=== PATIENT | male | born 1975 ===

== ENCOUNTER 2017-04-11 14:33 | Emergency (ER) | payer MEDICAID ==
[2017-04-11 15:20] LABS: Basophils % (Auto) 0.6 % (0.0-1.8); Eosinophils # (Auto) 0.1 K/mm3 (0.0-0.4); Eosinophils % (Auto) 1.1 % (0.0-4.3); Hematocrit 45.2 % (35.5-45.6); Hemoglobin 15.3 gm/dl (11.8-15.2); Lymphocytes # (Auto) 1.9 K/mm3 (1.2-5.4); Lymphocytes % (Auto) 30.6 % (13.4-35.0); Mean Corpuscular HGB Conc 34 % (32-34); Mean Corpuscular Hemoglobin 28 pg (28-32); Mean Corpuscular Volume 82 fl (84-94); Monocytes # (Auto) 0.5 K/mm3 (0.0-0.8); Monocytes % (Auto) 8.1 % (0.0-7.3); Platelet Count 100 K/mm3 (140-440); Red Blood Count 5.54 M/mm3 (3.65-5.03); Red Cell Distribution Width 14.8 % (13.2-15.2)
[2017-04-11 15:38] LABS: BUN/Creatinine Ratio 20; Blood Urea Nitrogen 18 mg/dL (9-20); Calcium 8.8 mg/dL (8.4-10.2); Hemolysis Index 37
[2017-04-11 15:46] LABS: Bilirubin,Urine NEG (Negative); Blood,Urine NEG (Negative); Color,Urine Straw (Yellow); Mucus,Urine FEW /HPF; Nitrite,Urine NEG (Negative); Protein,Urine <15 mg/dL mg/dL (Negative); Urobilinogen,Urine < 2.0 mg/dL (<2.0); WBC,Urine < 1.0 /HPF (0.0-6.0)
[2017-04-11 15:58] LABS: Amphetamine Screen,Urine PRESUMPTIVE NEGATIVE; Benzodiazepines Screen,Urine PRESUMPTIVE NEGATIVE; Methadone Screen,Urine PRESUMPTIVE NEGATIVE; Opiate Screen,Urine PRESUMPTIVE NEGATIVE
[2017-04-11 16:10] LABS: Cannabinoid Screen,Urine PRESUMPTIVE POSITIVE; Cocaine Screen,Urine PRESUMPTIVE POSITIVE
--- NOTE | 2017-04-11 18:35 | Emergency Department Report ---
ED Psych HPI - General Chief Complaint: Psych Stated Complaint: NEED DETOX Time Seen by Provider: 04/11/17 16:53 Source: patient Mode of arrival: Ambulatory - History of Present Illness MD Complaint: suicidal ideation (His father last November and he has been drinking a lot of alcohol since then. He has h/o schizo and he is on medication for that and he is compliant with meds but says he still hears voices and he talks back to them. Sometimes these voices ask him to kill himself. He wants to kill himself by drinking lots of alcohol and other ways he has thought about. ) - Related Data Home Medications Medication Instructions Recorded Confirmed Last Taken No Known Home Medications [No 04/11/17 04/11/17 Unknown Reported Home Medications] Allergies Allergy/AdvReac Type Severity Reaction Status Date / Time sulfamethoxazole Allergy Unknown Verified 04/11/17 14:55 [From Bactrim] trimethoprim [From Bactrim] Allergy Unknown Verified 04/11/17 14:55 ED Review of Systems ROS: Stated complaint: NEED DETOX Other details as noted in HPI Constitutional: denies: chills, fever Eyes: denies: eye pain, eye discharge, vision change ENT: denies: ear pain, throat pain Respiratory: denies: cough, shortness of breath, wheezing Cardiovascular: denies: chest pain, palpitations Endocrine: no symptoms reported Gastrointestinal: denies: abdominal pain, nausea, diarrhea Genitourinary: denies: urgency, dysuria Musculoskeletal: denies: back pain, joint swelling, arthralgia Skin: denies: rash, lesions Neurological: denies: headache, weakness, paresthesias Psychiatric: depression, auditory hallucinations, suicidal thoughts. denies: anxiety Hematological/Lymphatic: denies: easy bleeding, easy bruising ED Past Medical Hx - Past Medical History Previous Medical History?: Yes Hx Hypertension: Yes Hx Psychiatric Treatment: Yes (paranoid schizophrenia) Additional medical history: diverticulitis - Surgical History Past Surgical History?: No - Social History Smoking Status: Current Every Day Smoker Substance Use Type: Alcohol, Cocaine, Marijuana - Medications Home Medications: Home Medications Medication Instructions Recorded Confirmed Last Taken Type No Known Home Medications [No 04/11/17 04/11/17 Unknown History Reported Home Medications] ED Physical Exam - General Limitations: No Limitations General appearance: alert, in no apparent distress - Head Head exam: Present: atraumatic, normocephalic - Eye Eye exam: Present: normal appearance - ENT ENT exam: Present: mucous membranes moist - Neck Neck exam: Present: normal inspection - Respiratory Respiratory exam: Present: normal lung sounds bilaterally. Absent: respiratory distress - Cardiovascular Cardiovascular Exam: Present: regular rate, normal rhythm. Absent: systolic murmur, diastolic murmur, rubs, gallop - GI/Abdominal GI/Abdominal exam: Present: soft, normal bowel sounds - Rectal Rectal exam: Present: deferred - Extremities Exam Extremities exam: Present: normal inspection - Back Exam Back exam: Present: normal inspection - Neurological Exam Neurological exam: Present: alert, oriented X3 - Psychiatric Psychiatric exam: Present: depressed, agitated, suicidal ideation - Skin Skin exam: Present: warm, dry, intact, normal color. Absent: rash ED Course Vital Signs 04/11/17 14:56 Temperature 98.7 F Pulse Rate 80 Respiratory 18 Rate Blood Pressure 133/76 O2 Sat by Pulse 98 Oximetry ED Medical Decision Making - Lab Data Result diagrams: 04/11/17 15:09 04/11/17 15:09 Critical care attestation.: If time is entered above; I have spent that time in minutes in the direct care of this critically ill patient, excluding procedure time. ED Disposition Clinical Impression: Suicidal ideations Disposition: [id number]/TX-[id number] PSY HOSP/PSY UNIT Is pt being admited?: No Does the pt Need Aspirin: No Condition: Stable Referrals: PRIMARY CARE, [Primary Care Provider] - 3-5 Days
[2017-04-11] MEDS ORDERED: ATIVAN ONE (22:57)
[2017-04-11] MEDS ORDERED: ATIVAN IM ONE (23:45)
[2017-04-12 09:26] VITALS: BP 121/88
--- NOTE | 2017-04-12 16:12 | Consultation ---
<PAOLA LIZAMA - Last Filed: 04/12/17 16:16> History of Present Illness - Reason for Consult Consult date: 04/12/17 Reason for consult: Mental Health Evaluation Requesting physician: MEGHANN LO - Chief Complaint Chief complaint: "I am not suicidal" - History of Present Psychiatric Illness 41 y.o. AA male presenting to [facility] for detox and SI's. Today the patient is calm and cooperative during the assessment. He stated that he had "some" suicidal thoughts weeks ago and told the staff at [facility] on arrival. He stated [facility] had a detox program and that why he came to the hospital. He stated that he relapsed in Nov 2016. He stated that he started drinking alcohol and using recreational drugs after his mother . He stated that he should have made a better choice than start back using substances and drinking alcohol. He denies being depressed or psychotic. He stated that his main concern is getting "clean " and stop drinking alcohol. He denies SI/HI's and AVH's. Medications and Allergies Allergies Allergy/AdvReac Type Severity Reaction Status Date / Time sulfamethoxazole Allergy Unknown Verified 04/11/17 14:55 [From Bactrim] trimethoprim [From Bactrim] Allergy Unknown Verified 04/11/17 14:55 Home Medications Medication Instructions Recorded Confirmed Last Taken Type No Known Home Medications [No 04/11/17 04/11/17 Unknown History Reported Home Medications] Past psychiatric history - Past Medical History Past Medical History: hypertension Past Surgical History: Other - past Psychiatric treatment and history psychiatric treatment history: Hx of Substance Use and Alcohol abuse. Denies a fam psy hx. - Social History Social history: lives with family Mental Status Exam - Vital signs Last Vital Signs Temp 98.4 F 04/12/17 09:24 Pulse 57 L 04/12/17 09:24 Resp 13 04/12/17 09:24 BP 121/88 04/12/17 09:24 Pulse Ox 100 04/12/17 09:24 - Exam Narrative exam: MSE: Appearance: calm, cooperative Behavior: regular eye contact Speech: regular rate and tone Mood: "okay" Affect: congruent to mood Thought Process: linear Thought Content: denies SI/HI's and AVH's Motor Activity: ambulatory Cognition: A/O x3 Insight: fair Judgment: fair Results Result Diagrams: 04/11/17 15:09 04/11/17 15:09 All other labs normal. Assessment and Plan Assessment and plan: Impression: Substance Use DO (cocaine). Cannabis Use DO. Today the patient is calm and cooperative during the assessment. The patient is no threat to self. DDx: R/O Mood DO, Substance Induced Mood DO Recommendation/Plan: Rescind 1013. <MEGHANN LO - Last Filed: 04/12/17 16:39> Mental Status Exam - Vital signs Last Vital Signs Temp 98.4 F 04/12/17 09:24 Pulse 57 L 04/12/17 09:24 Resp 13 04/12/17 09:24 BP 121/88 04/12/17 09:24 Pulse Ox 100 04/12/17 09:24 Results Result Diagrams: 04/11/17 15:09 04/11/17 15:09 All other labs normal. Assessment and Plan - Psychiatric problem (1) Substance abuse Current Visit: Yes Status: Acute (2) Mood disorder Current Visit: Yes Status: Acute
== END 2017-04-12 17:46 | disposition home or self-care (01) ==
LOC: EEVIPCON 14:33 → ED 14:33
DX: F20.9 Schizophrenia, unspecified (principal); I10 Essential (primary) hypertension; F17.200 Nicotine dependence, unspecified, uncomplicated; F12.10 Cannabis abuse, uncomplicated; F14.10 Cocaine abuse, uncomplicated; Z88.1 Allergy status to other antibiotic agents; Z88.2 Allergy status to sulfonamides
CPT/HCPCS: 36415; 80048; 80307; 81001; 85025; 96372; 99283; G0480; J2060; 80320